=== PATIENT | female | born 1950 | race Caucasian/White ===

== ENCOUNTER 2017-06-09 14:18 | Emergency (ER) | payer MEDICARE, OTHER ==
[~2017-06-09] VITALS: Ht 160 cm; Wt 97.0 kg
[~2017-06-09 14:18] MED LIST: CENTRAL VITE PO; COLOSTRUM PO; LORA0.5T2 PO; LOSA25TA12 PO; LOSA25TA3 PO; MECL12.584 PO
[2017-06-09] MEDS ORDERED: ACETAMINOPHEN 325MG TABLET PO ONE (18:45)
[2017-06-09 19:40] VITALS: BP 151/65
== END 2017-06-09 19:52 | disposition home or self-care (01) ==
LOC: ER 14:28
DX: T46.5X1A Poisoning by other antihypertensive drugs, accidental (unintentional), initial encounter (principal); I10 Essential (primary) hypertension; F41.9 Anxiety disorder, unspecified; Z90.49 Acquired absence of other specified parts of digestive tract; Z98.51 Tubal ligation status; Y92.89 Other specified places as the place of occurrence of the external cause
CPT/HCPCS: 99283

== ENCOUNTER 2020-09-05 15:27 | Emergency (ER) | payer MEDICARE, OTHER ==
[~2020-09-05] VITALS: Ht 157.5 cm; Wt 72.0 kg
[~2020-09-05 15:27] MED LIST changes: -LOSA25TA12 PO; +LOSA25TA26 PO; +MECL-217 PO; -MECL12.584 PO
[2020-09-05] MEDS ORDERED: LABETALOL 5MG/ML SYR 20 MG/4 ML SYRINGE IV ONE (15:45)
[2020-09-05 16:08] LABS: BASOPHILS % 0.7 % (0.0-2.0); HEMATOCRIT. 43.4 % (36.0-48.0); HEMOGLOBIN. 14.8 g/dL (12.0-16.0); LYMPHOCYTES % 27.9 % (20.0-50.0); MEAN CORPUSCULAR HEMOGLOBIN 30.4 pg (28.0-32.0); MEAN CORPUSCULAR VOLUME 88.9 fL (81.0-99.0); MONOCYTES % 7.3 % (2.0-8.0); NEUTROPHILS % 60.1 % (40.0-76.0); PLATELET 266 x1000/uL (130-400); RED BLOOD CELL COUNT 4.89 mill/uL (4.2-5.4); RED CELL DISTRIBUTION WIDTH 14.2 % (11.6-14.6)
[2020-09-05 16:14] LABS: CHLORIDE 108 mEq/L (98-107)
[2020-09-05 16:58] LABS: CLARITY URINE CLEAR (CLEAR); COLOR URINE YELLOW (YELLOW); KETONES URINE NEGATIVE (NEGATIVE); LEUKOCYTE ESTERASE URINE TRACE (NEGATIVE); NITRITE URINE NEGATIVE (NEGATIVE); OCCULT BLOOD URINE NEGATIVE (NEGATIVE); PROTEIN URINE NEGATIVE (NEGATIVE); SPECIFIC GRAVITY URINE 1.011 (1.005-1.030); UROBILINOGEN URINE 0.2 E.U./dL (0.2-1.0)
[2020-09-05 17:21] LABS: *AMPHETAMINES SCREEN URINE NEGATIVE (NEGATIVE); *BARBITURATES SCREEN URINE NEGATIVE (NEGATIVE); *BENZODIAZEPINES SCREEN URINE NEGATIVE (NEGATIVE); *COCAINE SCREEN URINE NEGATIVE (NEGATIVE)
[2020-09-05 17:22] LABS: CANNABINOID URINE SCREEN NEGATIVE (NEGATIVE); METHADONE URINE SCREEN NEGATIVE (NEGATIVE); OPIATES URINE SCREEN NEGATIVE (NEGATIVE); PHENCYCLIDINE URINE SCREEN NEGATIVE (NEGATIVE)
[2020-09-05] MEDS ORDERED: CEPH250C2 MT (18:28)
[2020-09-05] MEDS ORDERED: CEPHALEXIN 250MG CAPSULE PO ONE (18:30)
[2020-09-05 23:30] VITALS: BP 150/72
== END 2020-09-05 23:57 | disposition home or self-care (01) ==
LOC: ER 15:27
DX: N39.0 Urinary tract infection, site not specified (principal); R53.1 Weakness; F41.9 Anxiety disorder, unspecified; I10 Essential (primary) hypertension; R41.82 Altered mental status, unspecified; Z90.49 Acquired absence of other specified parts of digestive tract; Z98.51 Tubal ligation status
CPT/HCPCS: 36415; 70450; 71045; 80053; 80305; 81003; 84484; 85025; 93005; 99285; J3490

== ENCOUNTER 2020-09-19 19:02 | Emergency (ER) | payer MEDICARE, OTHER ==
[~2020-09-19] VITALS: Ht 162.6 cm; Wt 82.0 kg
[~2020-09-19 19:02] MED LIST changes: +CEPH250C2 MT
[2020-09-19] MEDS ORDERED: SODIUM CHLORIDE 0.9% 1,000 ML IV ONE (21:00)
[2020-09-19 21:11] LABS: CLARITY URINE CLEAR (CLEAR); COLOR URINE YELLOW (YELLOW); KETONES URINE NEGATIVE (NEGATIVE); LEUKOCYTE ESTERASE URINE 1+ (NEGATIVE); NITRITE URINE NEGATIVE (NEGATIVE); OCCULT BLOOD URINE NEGATIVE (NEGATIVE); PROTEIN URINE NEGATIVE (NEGATIVE); SPECIFIC GRAVITY URINE 1.008 (1.005-1.030); UROBILINOGEN URINE 0.2 E.U./dL (0.2-1.0)
[2020-09-19 21:49] LABS: BASOPHILS % 0.7 % (0.0-2.0); EOSINOPHILS % 1.5 % (0.0-5.0); HEMATOCRIT. 44.3 % (36.0-48.0); HEMOGLOBIN. 15.3 g/dL (12.0-16.0); LYMPHOCYTES % 20.4 % (20.0-50.0); MEAN CORPUSCULAR HEMOGLOBIN 30.9 pg (28.0-32.0); MEAN CORPUSCULAR VOLUME 89.7 fL (81.0-99.0); MEAN PLATELET VOLUME 10.1 fl (7.4-10.4); MONOCYTES % 8.9 % (2.0-8.0); NEUTROPHILS % 68.5 % (40.0-76.0); PLATELET 279 x1000/uL (130-400); RED BLOOD CELL COUNT 4.94 mill/uL (4.2-5.4); RED CELL DISTRIBUTION WIDTH 14.3 % (11.6-14.6)
[2020-09-19 21:52] LABS: CHLORIDE 109 mEq/L (98-107)
[2020-09-20] VITALS: BP 145/87
== END 2020-09-20 07:17 | disposition home or self-care (01) ==
LOC: ER 19:02
DX: R53.1 Weakness (principal); M79.18 Myalgia, other site; F41.9 Anxiety disorder, unspecified; I10 Essential (primary) hypertension; Z98.51 Tubal ligation status; Z90.49 Acquired absence of other specified parts of digestive tract; Z79.899 Other long term (current) drug therapy
CPT/HCPCS: 36415; 71045; 80053; 81003; 83605; 84484; 85025; 96360; 99284; J7030

== ENCOUNTER 2021-02-22 13:54 | Emergency (ER) | payer MEDICARE, OTHER ==
[~2021-02-22] VITALS: Ht 154.9 cm; Wt 87.0 kg
[2021-02-22] MEDS ORDERED: IBUPROFEN 600MG TABLET PO STA (15:10)
[2021-02-22 15:36] VITALS: BP 180/104
[2021-02-22 15:51] LABS: BASOPHILS % 0.9 % (0.0-2.0); EOSINOPHILS % 2.4 % (0.0-5.0); HEMATOCRIT. 43.6 % (36.0-48.0); HEMOGLOBIN. 14.8 g/dL (12.0-16.0); LYMPHOCYTES % 19.3 % (20.0-50.0); MEAN CORPUSCULAR HEMOGLOBIN 30.4 pg (28.0-32.0); MEAN CORPUSCULAR VOLUME 89.9 fL (81.0-99.0); MEAN PLATELET VOLUME 9.4 fl (7.4-10.4); MONOCYTES % 5.3 % (2.0-8.0); NEUTROPHILS % 72.1 % (40.0-76.0); PLATELET 280 x1000/uL (130-400); RED BLOOD CELL COUNT 4.85 mill/uL (4.2-5.4); RED CELL DISTRIBUTION WIDTH 13.9 % (11.6-14.6)
[2021-02-22] MEDS ORDERED: POTASSIUM CHLORIDE INJ 40 MEQ in DEXT 5% WATER 500 ML IV ONE (16:00)
[2021-02-22] MEDS ORDERED: SODIUM CHLORIDE 0.9% 1,000 ML IV ONE (16:00)
[2021-02-22] MEDS ORDERED: CEFTRIAXONE 1 G PREMIX 50 ML IV ONE (16:00)
[2021-02-22 16:07] LABS: CLARITY URINE CLEAR (CLEAR); COLOR URINE YELLOW (YELLOW); KETONES URINE NEGATIVE (NEGATIVE); LEUKOCYTE ESTERASE URINE NEGATIVE (NEGATIVE); NITRITE URINE NEGATIVE (NEGATIVE); OCCULT BLOOD URINE NEGATIVE (NEGATIVE); PROTEIN URINE NEGATIVE (NEGATIVE); SPECIFIC GRAVITY URINE 1.008 (1.005-1.030); UROBILINOGEN URINE 0.2 E.U./dL (0.2-1.0)
[2021-02-22 16:38] LABS: CHLORIDE 109 mEq/L (98-107)
== END 2021-02-22 18:31 | disposition home or self-care (01) ==
LOC: ER 13:54
DX: R10.2 Pelvic and perineal pain (principal); R53.1 Weakness; R42 Dizziness and giddiness; I10 Essential (primary) hypertension; F41.9 Anxiety disorder, unspecified; Z90.49 Acquired absence of other specified parts of digestive tract; Z98.51 Tubal ligation status
CPT/HCPCS: 36415; 80053; 81003; 83690; 85025; 99283; J7030; J3480; J7060

== ENCOUNTER 2023-06-30 17:20 | Emergency (ER) | payer OTHER ==
[~2023-06-30] VITALS: Ht 165.1 cm; Wt 91.0 kg
[~2023-06-30 17:20] MED LIST changes: +LOSA-412 PO; -LOSA25TA3 PO
[2023-06-30 17:36] VITALS: O2SAT 100
[2023-06-30] MEDS ORDERED: ACETAMINOPHEN 325MG TABLET PO STA (18:19)
[2023-06-30] MEDS ORDERED: CIPHCO LEFT EAR (19:06)
[2023-06-30] MEDS ORDERED: NAPR-681 MT (19:06)
[2023-06-30 19:34] VITALS: BP 142/83; PULSE 86; RESP 16; TEMP 98.2
== END 2023-06-30 19:36 | disposition home or self-care (01) ==
LOC: ER 17:20
DX: H60.92 Unspecified otitis externa, left ear (principal)
CPT/HCPCS: 99283

== ENCOUNTER 2023-12-03 16:16 | Emergency (ER) | payer OTHER, MEDICAID ==
[~2023-12-03] VITALS: Ht 167.6 cm; Wt 90.0 kg
[~2023-12-03 16:16] MED LIST changes: +ACET-2128 PO; +BENZ100C86 MT; -CEPH250C2 MT; +CIPHCO LEFT EAR; +LEVO75TA7 PO; -LOSA-412 PO; +NAPR-681 MT; +[UNRECOGNIZED DRUG - CODE]
[2023-12-03 16:23] VITALS: O2SAT 99
[2023-12-03 18:04] LABS: BASOPHILS % 1.3 % (0.0-2.0); EOSINOPHILS % 3.5 % (0.0-5.0); HEMATOCRIT. 38.1 % (36.0-48.0); HEMOGLOBIN. 12.8 g/dL (12.0-16.0); LYMPHOCYTES % 18.6 % (20.0-50.0); MEAN CORPUSCULAR HEMOGLOBIN 30.1 pg (28.0-32.0); MEAN CORPUSCULAR HGB CONC 33.7 g/dL (31.0-37.0); MEAN CORPUSCULAR VOLUME 89.3 fL (81.0-99.0); MEAN PLATELET VOLUME 9.6 fl (7.4-10.4); MONOCYTES % 9.8 % (2.0-8.0); NEUTROPHILS % 66.8 % (40.0-76.0); PLATELET 251 x1000/uL (130-400); RED BLOOD CELL COUNT 4.26 mill/uL (4.2-5.4); RED CELL DISTRIBUTION WIDTH 14.4 % (11.6-14.6); WHITE BLOOD COUNT 8.7 x1000/uL (4.5-11.0)
[2023-12-03 18:09] LABS: CHLORIDE 107 mEq/L (98-107)
[2023-12-03 18:10] LABS: CARBON DIOXIDE 28 mEq/L (21-32); POTASSIUM 3.9 mEq/L (3.5-5.1); SODIUM 141 mEq/L (136-145)
[2023-12-03 18:11] LABS: CALCIUM 9.4 mg/dL (8.7-10.4)
[2023-12-03 18:15] LABS: CREATININE 0.8 mg/dL (0.6-1.0); PROTHROMBIN TIME 10.9 sec (9.6-11.0)
[2023-12-03 18:16] LABS: GLUCOSE 110 mg/dL (70-105); TROPONIN I HIGH SENSITIVITY 5 ng/L (3.0-34); UREA NITROGEN BLOOD 13 mg/dL (9-23)
[2023-12-03 18:17] LABS: ALANINE AMINOTRANSFERASE 21 IU/L (10-49); ALBUMIN 4.3 g/dL (3.2-4.8); ASPARTATE AMINOTRANSFERASE 21 IU/L (<34)
[2023-12-03 18:18] LABS: BILIRUBIN DIRECT 0.1 mg/dL (<=3.0); BILIRUBIN TOTAL 0.3 mg/dL (0.1-1.0); PROTEIN TOTAL 7.5 g/dL (6.0-8.3)
[2023-12-03 18:24] LABS: CLARITY URINE CLEAR (CLEAR); COLOR URINE YELLOW (YELLOW); GLUCOSE URINE NEGATIVE (NEGATIVE); KETONES URINE NEGATIVE (NEGATIVE); LEUKOCYTE ESTERASE URINE TRACE (NEGATIVE); NITRITE URINE NEGATIVE (NEGATIVE); OCCULT BLOOD URINE 2+ (NEGATIVE); PROTEIN URINE NEGATIVE (NEGATIVE); SPECIFIC GRAVITY URINE 1.005 (1.005-1.030); UROBILINOGEN URINE 0.2 E.U./dL (0.2-1.0)
[2023-12-03 18:49] LABS: BACTERIA URINE 1+; SQUAMOUS EPITHELIAL CELL URINE FEW /lpf (RARE/1+); WBC URINE 0-2 /hpf (0-2)
[2023-12-03] MEDS ORDERED: CIPR-263 MT (22:38)
[2023-12-03] MEDS ORDERED: TRAM50TA3 MT (22:38)
[2023-12-03 23:00] VITALS: TEMP 98.5
[2023-12-03 23:13] VITALS: BP 159/66; PULSE 69; RESP 16
[2023-12-03] MEDS: CEFTRIAXONE 1GM/50ML 50 ML IV NR (23:13)
[2023-12-03] MEDS: HYDROCODONE/ACETAMINOPHEN 10/325MG TABLET PO ONE (23:13)
[2023-12-03 23:33] LABS: TROPONIN I HIGH SENSITIVITY 7 ng/L (3.0-34)
== END 2023-12-04 00:49 | disposition home or self-care (01) ==
LOC: ER 16:26
DX: R10.9 Unspecified abdominal pain (principal); F41.9 Anxiety disorder, unspecified; I10 Essential (primary) hypertension; Z90.49 Acquired absence of other specified parts of digestive tract; Z98.51 Tubal ligation status; Z79.899 Other long term (current) drug therapy; Z88.5 Allergy status to narcotic agent
CPT/HCPCS: 99285; 96365; 76830; 80076; 80048; 81003; 83605; 83690; 85025; 85610; 84484; 36415; 76856; J0696

== ENCOUNTER 2024-06-02 12:54 | Emergency (ER) | payer OTHER, MEDICAID ==
[~2024-06-02] VITALS: Ht 160 cm; Wt 80.0 kg
[~2024-06-02 12:54] MED LIST changes: -ACET-2128 PO; -CENTRAL VITE PO; -CIPHCO LEFT EAR; -COLOSTRUM PO; +HYDR-4009 MT; -LORA0.5T2 PO; -MECL-217 PO; +TRAM50TA3 MT; -[UNRECOGNIZED DRUG - CODE]
[2024-06-02 12:59] VITALS: BP 166/78; PULSE 76; RESP 18; TEMP 98.1; O2SAT 99
[2024-06-02 17:22] LABS: EOSINOPHILS % 5.6 % (0.0-5.0); HEMATOCRIT. 42.1 % (36.0-48.0); HEMOGLOBIN. 13.9 g/dL (12.0-16.0); LYMPHOCYTES % 25.8 % (20.0-50.0); MEAN CORPUSCULAR HEMOGLOBIN 29.9 pg (28.0-32.0); MEAN CORPUSCULAR HGB CONC 33.1 g/dL (31.0-37.0); MEAN CORPUSCULAR VOLUME 90.6 fL (81.0-99.0); MEAN PLATELET VOLUME 9.2 fl (7.4-10.4); MONOCYTES % 6.9 % (2.0-8.0); NEUTROPHILS % 60.7 % (40.0-76.0); PLATELET 269 x1000/uL (130-400); RED BLOOD CELL COUNT 4.64 mill/uL (4.2-5.4); RED CELL DISTRIBUTION WIDTH 14.3 % (11.6-14.6); WHITE BLOOD COUNT 8.5 x1000/uL (4.5-11.0)
[2024-06-02 17:31] LABS: CHLORIDE 106 mEq/L (98-107); POTASSIUM 3.6 mEq/L (3.5-5.1); SODIUM 141 mEq/L (136-145)
[2024-06-02 17:32] LABS: CARBON DIOXIDE 26 mEq/L (21-32)
[2024-06-02 17:37] LABS: CREATININE 0.7 mg/dL (0.6-1.0); GLUCOSE 137 mg/dL (70-105); UREA NITROGEN BLOOD 11 mg/dL (9-23)
[2024-06-02 18:05] LABS: ALANINE AMINOTRANSFERASE 24 IU/L (10-49); ALBUMIN 4.6 g/dL (3.2-4.8); ASPARTATE AMINOTRANSFERASE 26 IU/L (<34); BILIRUBIN DIRECT 0.2 mg/dL (<=3.0); BILIRUBIN TOTAL 0.5 mg/dL (0.1-1.0)
[2024-06-02 18:57] LABS: CLARITY URINE CLOUDY (CLEAR); COLOR URINE YELLOW (YELLOW); GLUCOSE URINE NEGATIVE (NEGATIVE); KETONES URINE NEGATIVE (NEGATIVE); LEUKOCYTE ESTERASE URINE 3+ (NEGATIVE); NITRITE URINE NEGATIVE (NEGATIVE); OCCULT BLOOD URINE 1+ (NEGATIVE); PH URINE 5.5 (4.5-8.0); PROTEIN URINE NEGATIVE (NEGATIVE); SPECIFIC GRAVITY URINE 1.012 (1.005-1.030); UROBILINOGEN URINE 0.2 E.U./dL (0.2-1.0)
[2024-06-02 19:19] LABS: BACTERIA URINE 3+; SQUAMOUS EPITHELIAL CELL URINE 1+ /lpf (RARE/1+)
[2024-06-02 19:20] LABS: WBC URINE 50-100 /hpf (0-2)
[2024-06-02] MEDS ORDERED: CEFTRIAXONE 1GM/50ML 50 ML IV ONE (20:00)
[2024-06-02] MEDS ORDERED: CEFTRIAXONE 1GM/50ML 50 ML IV NR (22:15)
[2024-06-02] MEDS: SODIUM CHLORIDE 0.9% 1,000 ML IV ONE (22:26)
[2024-06-02] MEDS: ACETAMINOPHEN 1000MG/100ML 100 ML IV ONE (22:26)
[2024-06-02] MEDS ORDERED: KETOROLAC 30MG/ML VIAL IV STA (22:56)
[2024-06-03] MEDS ORDERED: SULF1TAB48 MT (00:11)
[2024-06-03] MEDS ORDERED: NAPR-681 PO (00:11)
[2024-06-03] MEDS ORDERED: ONDA-239 PO (00:11)
[2024-06-03] MEDS ORDERED: PHEN-910 MT (00:11)
[2024-06-03] MEDS ORDERED: ONDANSETRON HCL 4MG/2ML INJ IV STA (00:28)
== END 2024-06-03 01:16 | disposition home or self-care (01) ==
LOC: ER 14:06
DX: N39.0 Urinary tract infection, site not specified (principal); R10.9 Unspecified abdominal pain; I10 Essential (primary) hypertension; Z88.5 Allergy status to narcotic agent
CPT/HCPCS: 99285; 74176; 96365; 76830; 76856; 80076; 80048; 81003; 83690; 85025; 87086; 36415; J7030; 96361; 96374; J0131